=== PATIENT | female | born 1980 | race Caucasian/White ===

== ENCOUNTER 2020-08-01 11:51 | Emergency (ER) | payer MEDICAID ==
[~2020-08-01] VITALS: Ht 160 cm; Wt 69.0 kg
[2020-08-01] MEDS ORDERED: IBUPROFEN 600MG TABLET PO STA (12:11)
[2020-08-01 13:40] VITALS: BP 139/93
== END 2020-08-01 13:42 | disposition home or self-care (01) ==
LOC: ER 11:57
DX: S20.212A Contusion of left front wall of thorax, initial encounter (principal); V43.62XA Car passenger injured in collision with other type car in traffic accident, initial encounter; W22.12XA Striking against or struck by front passenger side automobile airbag, initial encounter; Y93.89 Activity, other specified; Y92.488 Other paved roadways as the place of occurrence of the external cause
CPT/HCPCS: 71045; 93005; 99283